=== PATIENT | male | born 1960 | race Caucasian/White ===

== ENCOUNTER 2017-07-27 04:36 | Inpatient (IN) | payer OTHER ==
[~2017-07-27] VITALS: Ht 180.3 cm; Wt 90.3 kg
[2017-07-27] MEDS ORDERED: ONDANSETRON ODT 4 MG ONE (05:08)
[2017-07-27] MEDS ORDERED: MORPHINE SULFATE 4 MG/ML, 1ML ONE ×2 (05:08→05:53)
[2017-07-27] MEDS: MORPHINE SULFATE 4 MG/ML, 1ML IVPush PRN ×2 (05:12→05:57)
[2017-07-27] MEDS ORDERED: ONDANSETRON ODT 4 MG PO ONE (05:30)
[2017-07-27] MEDS ORDERED: SODIUM CHLORIDE 0.9% 1,000ML IVBOLUS ONE ×2 (05:30→08:00)
[2017-07-27] MEDS ORDERED: SODIUM CHLORIDE FLUSH 10ML SYR IVF ONE (05:30)
[2017-07-27 05:38] LABS: BASOPHILS # (AUTO) 0.06 x10^3/uL (0-0.1); BASOPHILS % (AUTO) 1 % (0-1); EOSINOPHILS # (AUTO) 0.26 x10^3/uL (0-0.4); EOSINOPHILS % (AUTO) 4 % (1-7); LYMPHOCYTES # (AUTO) 1.23 x10^3/uL (1-3.4); LYMPHOCYTES % (AUTO) 17 % (22-44); MD NO; MEAN CORPUSCULAR HEMOGLOBIN 29.6 pg (27.5-34.5); MEAN CORPUSCULAR HGB CONC 33.5 g/dL (33.2-36.2); MEAN CORPUSCULAR VOLUME 88.3 fL (81-97); MEAN PLATELET VOLUME 9.5 fL (7.4-10.4); MONOCYTES # (AUTO) 0.49 x10^3/uL (0.2-0.8); MONOCYTES % (AUTO) 7 % (2-9); NEUTROPHILS # (AUTO) 5.18 x10^3/uL (1.8-6.8); NEUTROPHILS % (AUTO) 72 % (42-75); PLATELET COUNT 197 x10^3/uL (130-400); RED BLOOD COUNT 6.16 x10^6/uL (4.38-5.82); RED CELL DISTRIBUTION WIDTH 13.8 % (9.4-14.8)
[2017-07-27 05:49] LABS: ALANINE AMINOTRANSFERASE 24 U/L (12-78); ALBUMIN 3.6 g/dL (3.4-5.0); ANION GAP 9 mmol/L (5-15); CALCIUM 8.5 mg/dL (8.5-10.1); CHLORIDE 111 mmol/L (98-107); CREATININE 1.08 mg/dL (0.7-1.3)
[2017-07-27 05:52] LABS: ALKALINE PHOSPHATASE 53 U/L (45-117); BILIRUBIN,TOTAL 1.6 mg/dL (0.2-1.0); TOTAL PROTEIN 7.3 g/dL (6.4-8.2)
[2017-07-27] MEDS ORDERED: OMEP-110 PO (06:13)
[2017-07-27] MEDS ORDERED: DIPH1TAB PO (06:13)
[2017-07-27] MEDS ORDERED: HYDROmorphone 1 MG/ML, 1ML ONE (06:21)
[2017-07-27] MEDS ORDERED: HYDROmorphone 1 MG/ML, 1ML IV ONE (06:30)
[2017-07-27 06:50] LABS: CULTURE INDICATED? NO; MICROSCOPIC NOT IND
[2017-07-27] MEDS ORDERED: METRONIDAZOLE PMX 500MG/100ML 100 ML IV ONE (08:00)
[2017-07-27] MEDS ORDERED: CIPROFLOXACIN/PMX 400MG/200ML 200 ML IV ONE (08:00)
[2017-07-27] MEDS ORDERED: METRONIDAZOLE PMX 500MG/100ML 100 ML ONE (08:04)
[2017-07-27] MEDS ORDERED: CIPROFLOXACIN/PMX 400MG/200ML 0 ML ONE (08:04)
[2017-07-27] MEDS ORDERED: ONDANSETRON ODT 4 MG PO PRN (08:30)
[2017-07-27] MEDS ORDERED: PROMETHAZINE 25 MG/ML, 1ML IM PRN (08:30)
[2017-07-27 08:45] VITALS: BP 130/81
[2017-07-27] MEDS: METRONIDAZOLE PMX 500MG/100ML 100 ML IV SCH ×2 (09:08→16:39)
[2017-07-27] MEDS: CEFTRIAXONE PMX 1GM/50ML 50 ML IV SCH (09:38)
[2017-07-27] MEDS: OMEPRAZOLE 20 MG CAPSULE.DR PO SCH (09:38)
[2017-07-27] MEDS: DIPHENOXYLATE/ATROPINE TABLET PO SCH ×2 (09:38→20:19)
[2017-07-27] MEDS: HYDROmorphone 2 MG/ML, 1ML IVPush PRN ×6 (09:38→18:49)
[2017-07-27] MEDS: HEPARIN 5,000 UNITS/ML, 1ML SQ SCH ×2 (09:38→16:39)
[2017-07-27] MEDS: SODIUM CHLORIDE 0.9% 1,000 ML IV SCH ×2 (09:39→16:39)
[2017-07-27 14:54] VITALS: BP 143/87
[2017-07-27 18:24] VITALS: BP 127/69
[2017-07-27] MEDS ORDERED: PANTOPRAZOLE 40 MG IV IVPush ONE (20:30)
[2017-07-28] MEDS: METRONIDAZOLE PMX 500MG/100ML 100 ML IV SCH ×3 (01:25→18:03)
[2017-07-28] MEDS: SODIUM CHLORIDE 0.9% 1,000 ML IV SCH ×3 (01:26→18:03)
[2017-07-28] MEDS: HEPARIN 5,000 UNITS/ML, 1ML SQ SCH ×3 (01:31→16:39)
[2017-07-28] MEDS: HYDROmorphone 2 MG/ML, 1ML IVPush PRN ×2 (01:47→11:11)
[2017-07-28 02:00] VITALS: BP 126/74
[2017-07-28] MEDS ORDERED: OMNIPAQUE 350 MG/ML, 100ML BOTTLE ONE (03:45)
[2017-07-28 05:20] LABS: BASOPHILS # (AUTO) 0.01 x10^3/uL (0-0.1); BASOPHILS % (AUTO) 0 % (0-1); EOSINOPHILS # (AUTO) 0.16 x10^3/uL (0-0.4); EOSINOPHILS % (AUTO) 2 % (1-7); LYMPHOCYTES % (AUTO) 11 % (22-44); MD NO; MEAN CORPUSCULAR HEMOGLOBIN 29.7 pg (27.5-34.5); MEAN CORPUSCULAR HGB CONC 33.4 g/dL (33.2-36.2); MEAN PLATELET VOLUME 9.5 fL (7.4-10.4); MONOCYTES # (AUTO) 0.84 x10^3/uL (0.2-0.8); MONOCYTES % (AUTO) 9 % (2-9); NEUTROPHILS # (AUTO) 7.75 x10^3/uL (1.8-6.8); NEUTROPHILS % (AUTO) 79 % (42-75); PLATELET COUNT 162 x10^3/uL (130-400); RED BLOOD COUNT 5.36 x10^6/uL (4.38-5.82); RED CELL DISTRIBUTION WIDTH 13.7 % (9.4-14.8)
[2017-07-28 05:22] LABS: ALBUMIN 2.9 g/dL (3.4-5.0); CHLORIDE 108 mmol/L (98-107)
[2017-07-28 05:25] LABS: ALANINE AMINOTRANSFERASE 30 U/L (12-78); ALKALINE PHOSPHATASE 46 U/L (45-117); ANION GAP 9 mmol/L (5-15); BILIRUBIN,TOTAL 2.2 mg/dL (0.2-1.0); CALCIUM 7.9 mg/dL (8.5-10.1); CREATININE 1.15 mg/dL (0.7-1.3); TOTAL PROTEIN 5.9 g/dL (6.4-8.2)
[2017-07-28 07:34] VITALS: BP 120/77
[2017-07-28] MEDS ORDERED: FENTANYL PF 100 MCG/2ML ONE ×3 (08:37→20:15)
[2017-07-28] MEDS ORDERED: MIDAZOLAM 1 MG/ML, 5ML ONE (08:37)
[2017-07-28] MEDS: CEFTRIAXONE PMX 2GM/50ML 50 ML IVPB SCH (09:00)
[2017-07-28] MEDS: DIPHENOXYLATE/ATROPINE TABLET PO SCH ×2 (09:33→21:00)
[2017-07-28] MEDS: OMEPRAZOLE 20 MG CAPSULE.DR PO SCH (09:33)
[2017-07-28] MEDS: CEFTRIAXONE PMX 1GM/50ML 50 ML IV SCH (09:39)
[2017-07-28 12:28] VITALS: BP 108/78
[2017-07-28] MEDS ORDERED: BUPIVACAINE/PF-EPI 0.5% 1:200K ONE (18:30)
[2017-07-28] MEDS ORDERED: MIDAZOLAM 1 MG/ML, 2ML ONE (18:54)
[2017-07-28] MEDS ORDERED: ROCURONIUM 10MG/ML,5ML ONE (19:11)
[2017-07-28] MEDS ORDERED: PROPOFOL 10 MG/ML, 20ML ONE (19:46)
[2017-07-28] MEDS ORDERED: NEOSTIGMINE 1 MG/ML, 10ML ONE (19:46)
[2017-07-28] MEDS ORDERED: GLYCOPYRROLATE 0.2MG/1ML, 5ML ONE (19:46)
[2017-07-28] MEDS ORDERED: CEFAZOLIN 1,000 MG ONE (19:46)
[2017-07-28] MEDS ORDERED: SUCCINYLCHOLINE 20 MG/ML, 10ML ONE (19:46)
[2017-07-28] MEDS ORDERED: DEXAMETHASONE 4 MG/ML, 1ML ONE (19:46)
[2017-07-28] MEDS ORDERED: LABETALOL 5MG/ML, 20ML IV PRN (20:00)
[2017-07-28] MEDS ORDERED: MEPERIDINE/PF 25MG/0.5ML IVPush PRN (20:00)
[2017-07-28] MEDS ORDERED: ACETAMINOPHEN 325 MG TABLET PO PRN ×2 (20:00→22:00)
[2017-07-28] MEDS ORDERED: OXYcodone 5 MG/5 ML ORAL.SOL UDC PO PRN (20:00)
[2017-07-28] MEDS ORDERED: FENTANYL PF 100 MCG/2ML IV PRN (20:00)
[2017-07-28] MEDS ORDERED: ALBUTEROL SULFATE 2.5 MG/3 ML NPPB PRN (20:00)
[2017-07-28] MEDS ORDERED: EPHEDRINE 50 MG/ML, 1ML IVPush PRN (20:00)
[2017-07-28] MEDS ORDERED: HYDROcodone/APAP 7.5-325MG/15ML UDC PO PRN (20:00)
[2017-07-28] MEDS ORDERED: PROMETHAZINE 25 MG/ML, 1ML IV PRN (20:00)
[2017-07-28] MEDS ORDERED: DIAZEPAM 5 MG/ML, 2ML IVPush PRN (20:00)
[2017-07-28] MEDS ORDERED: hydrALAzine 20 MG/ML, 1ML IV PRN (20:00)
[2017-07-28] MEDS ORDERED: HYDROmorphone 1 MG/ML, 1ML IV PRN (20:00)
[2017-07-28] MEDS ORDERED: ONDANSETRON ODT 8 MG PO PRN (20:00)
[2017-07-28] MEDS ORDERED: MIDAZOLAM 1 MG/ML, 2ML IV PRN (20:00)
[2017-07-28] MEDS ORDERED: OMNIPAQUE 350 MG/ML, 50 ML BOTTLE ONE (20:01)
[2017-07-28] MEDS ORDERED: MEPERIDINE/PF 50 MG/ML ONE (20:15)
[2017-07-28] MEDS ORDERED: OXYcodone 5 MG/5 ML ORAL.SOL UDC ONE (20:15)
[2017-07-28] MEDS ORDERED: ONDANSETRON 2MG/ML, 2ML IV PRN (22:00)
[2017-07-28] MEDS: LACTATED RINGERS 1,000 ML IV SCH (22:00)
[2017-07-28] MEDS ORDERED: OXYcodone IR 5MG TABLET PO PRN (22:00)
[2017-07-28] MEDS ORDERED: HYDROmorphone 2 MG/ML, 1ML IV PRN (22:00)
[2017-07-29 00:19] VITALS: BP 120/78
[2017-07-29] MEDS: HEPARIN 5,000 UNITS/ML, 1ML SQ SCH ×2 (00:30→08:55)
[2017-07-29] MEDS: METRONIDAZOLE PMX 500MG/100ML 100 ML IV SCH ×2 (01:55→09:43)
[2017-07-29 04:34] VITALS: BP 104/70
[2017-07-29 07:18] VITALS: BP 115/74
[2017-07-29] MEDS: LACTATED RINGERS 1,000 ML IV SCH (08:10)
[2017-07-29] MEDS: CEFTRIAXONE PMX 2GM/50ML 50 ML IVPB SCH (08:55)
[2017-07-29] MEDS: DIPHENOXYLATE/ATROPINE TABLET PO SCH (08:56)
[2017-07-29] MEDS: OMEPRAZOLE 20 MG CAPSULE.DR PO SCH (08:56)
[2017-07-29 10:30] VITALS: BP 116/80
== END 2017-07-29 12:20 | disposition home or self-care (01) | DRG 418 ==
LOC: ED 07:30 → 4NOR 07:48 → SUATTDRO 08:18 → DCLOUNGE 07-29 12:05
PROVIDERS: ADMIT Hospitalist; ATTEND Hospitalist
PROC: 0FT44ZZ Resection of Gallbladder, Percutaneous Endoscopic Approach (ICD-10-PCS; 2017-07-28)
PROC: BF121ZZ Fluoroscopy of Gallbladder using Low Osmolar Contrast (ICD-10-PCS; 2017-07-28)
PROC: 0DB68ZX Excision of Stomach, Via Natural or Artificial Opening Endoscopic, Diagnostic (ICD-10-PCS; principal; 2017-07-28 09:00)
DX: K80.01 Calculus of gallbladder with acute cholecystitis with obstruction (principal); G61.0 Guillain-Barre syndrome; K66.8 Other specified disorders of peritoneum; K51.90 Ulcerative colitis, unspecified, without complications; N28.1 Cyst of kidney, acquired; K29.70 Gastritis, unspecified, without bleeding; E86.9 Volume depletion, unspecified; K21.9 Gastro-esophageal reflux disease without esophagitis; K52.9 Noninfective gastroenteritis and colitis, unspecified
CPT/HCPCS: 36415; 74177; 74300; 76700; 80053; 81003; 83690; 83735; 84100; 85025; 88304; 88305; 93005; 96360; 99152; 99153; 99285; J0690; J0696; J1100; J1170; J1644; J2175; J2250; J2704; J2710; J3010; J3490; Q0162; Q9967; C9113; J0330; J7030